=== PATIENT | male | born 1995 | race African-American/Black ===

== ENCOUNTER 2019-04-04 14:44 | Emergency (ER) | payer SELFPAY ==
[~2019-04-04] VITALS: Ht 167.6 cm; Wt 77.3 kg
[2019-04-04] MEDS ORDERED: IBUPROFEN 600 MG TABLET PO ONE (15:45)
[2019-04-04 16:20] VITALS: BP 117/84
== END 2019-04-04 16:30 | disposition home or self-care (01) ==
LOC: EMS 14:48
DX: S43.402A Unspecified sprain of left shoulder joint, initial encounter (principal); F17.210 Nicotine dependence, cigarettes, uncomplicated; W01.0XXA Fall on same level from slipping, tripping and stumbling without subsequent striking against object, initial encounter; Y93.89 Activity, other specified; Y92.89 Other specified places as the place of occurrence of the external cause; Y99.8 Other external cause status